=== PATIENT | male | born 1950 | race Caucasian/White ===

== ENCOUNTER 2022-02-10 14:53 | Emergency (ER) | payer OTHER, MEDICARE ==
[2022-02-10] MEDS ORDERED: Acetaminophen 325 MG Tab PO ONE (16:12)
[2022-02-10] MEDS ORDERED: Cyclobenzaprine 10 MG Tab PO ONE (16:12)
[2022-02-10] MEDS ORDERED: Morphine 4 MG/ML Syringe IVPUSH ONE (17:15)
[2022-02-10] MEDS ORDERED: Sodium Chloride 0.9% 10 ML Syringe FLUSH PRN (17:42)
[2022-02-10] MEDS ORDERED: Iopamidol 612 MG/ML 100 ML Bottle IVPUSH ONE (17:42)
== END 2022-02-10 19:22 | disposition home or self-care (01) ==
LOC: JD.ED 14:53
DX: S22.41XA Multiple fractures of ribs, right side, initial encounter for closed fracture (principal); S93.402A Sprain of unspecified ligament of left ankle, initial encounter; V29.9XXA Motorcycle rider (driver) (passenger) injured in unspecified traffic accident, initial encounter; Y93.55 Activity, bike riding
CPT/HCPCS: 36415; 71101; 71270; 80053; 81001; 85025; 85610; 94762; 96374; 99284; A9270; J2270; J3490; Q9967

== ENCOUNTER 2025-02-24 07:59 | Day surgery (SDC) | payer MEDICARE ==
[2025-02-24] MEDS: Phenylephrine 2.5% Ophth Soln 2 ML Bot EYERT SCH (06:56)
[2025-02-24] MEDS: Polymyxin B/Trimethoprim 10 ML Bottle EYERT SCH (06:57)
[2025-02-24] MEDS: Pilocarpine 4% Ophth Soln 15 ML Bot EYERT SCH (06:57)
[2025-02-24] MEDS: Cefuroxime 10 MG/ML SYRINGE EYERT SCH (06:57)
[2025-02-24] MEDS: Brimonidine 0.2% Ophth Soln 5 ML Bottle EYERT SCH (06:57)
[2025-02-24] MEDS: Lidocaine 1% PF 2 ML SDV INJECT SCH (06:57)
[2025-02-24] MEDS: Tetracaine HCl/PF 0.5% 4 ML Bottle EYEBOTH SCH (06:57)
[2025-02-24] MEDS: Tropicamide 1% Ophth Soln 3 ML Bottle EYERT SCH (09:10)
== END 2025-02-24 10:56 ==
LOC: JD.SDS 07:59
PROVIDERS: ATTEND Ophthalmology
DX: H25.813 Combined forms of age-related cataract, bilateral (principal); H35.371 Puckering of macula, right eye; H18.413 Arcus senilis, bilateral; H16.103 Unspecified superficial keratitis, bilateral; H16.223 Keratoconjunctivitis sicca, not specified as Sjogren's, bilateral
CPT/HCPCS: 66984; A9270; J0697; J3490